=== PATIENT | female | born 1995 | race Caucasian/White ===

== ENCOUNTER 2017-07-10 20:56 | Emergency (ER) | payer BC ==
[2017-07-11] MEDS: ONDANSETRON (ODT) 4 MG TAB ODT (00:17)
[2017-07-11] MEDS: KETOROLAC 60 MG INJ IM (00:18)
== END 2017-07-11 01:24 | disposition home or self-care (01) ==
LOC: FTE 07-11 01:24
DX: R51 Headache (principal); R11.0 Nausea
CPT/HCPCS: 81025; 96372; 99284-25

== ENCOUNTER 2017-08-06 07:36 | Day surgery (SDC) | payer BC ==
[~2017-08-06 07:36] MED LIST: CEFAZOLIN 1 GM INJ; DEXAMETHASONE 4 MG/ML 1 ML INJ; LIDOCAINE 1%/EPI 30 ML INJ; METOCLOPRAMIDE 10 MG INJ; OXYMETAZOLINE 0.05% 15 ML NAS SPRAY NASAL; SUGAMMADEX SODIUM 200 MG/2 ML VIAL IV
[2017-08-06] MEDS: OXYMETAZOLINE 0.05% 15 ML NAS SPRAY NASAL (07:44)
[2017-08-06] MEDS: LIDOCAINE 1%/EPI 30 ML INJ INJ (07:44)
[2017-08-06] MEDS ORDERED: FENTAnyl 50 MCG/ML VIAL (07:49)
[2017-08-06] MEDS ORDERED: MIDAZOLAM 1 MG/ML 2 ML INJ (07:49)
[2017-08-06] MEDS ORDERED: PROPOFOL 20 ML (07:50)
[2017-08-06] MEDS ORDERED: ROCURONIUM 50 MG INJ (07:52)
[2017-08-06] MEDS ORDERED: LIDOCAINE 100 MG SYRINGE (07:52)
[2017-08-06] MEDS ORDERED: ONDANSETRON 4 MG INJ (07:52)
[2017-08-06] MEDS ORDERED: SUCCINYLCHOLINE CHLORIDE 100 MG/5 ML SYG IV (07:52)
[2017-08-06] MEDS ORDERED: HYDROmorphONE (0.2 MG/ML) 10ML SYG IV (10:00)
[2017-08-06] MEDS ORDERED: DIPHENHYDRAMINE 50 MG INJ IV (10:00)
[2017-08-06] MEDS ORDERED: ONDANSETRON 4 MG INJ IV (10:00)
[2017-08-06] MEDS ORDERED: MEPERIDINE 25 MG INJ IV (10:00)
[2017-08-06] MEDS ORDERED: FENTAnyl 50 MCG/ML VIAL IV ×2 (10:00)
[2017-08-06] MEDS: LEVALBUTEROL (NEB) 0.63 MG/3 ML AMP HHN (10:57)
[2017-08-06] MEDS: HYDROmorphONE (0.2 MG/ML) 10ML SYG IV (11:19)
== END 2017-08-06 13:22 | disposition home or self-care (01) ==
LOC: SDS 07:36
DX: J32.8 Other chronic sinusitis (principal)
CPT/HCPCS: 31253; 84703; 94664

== ENCOUNTER 2018-06-21 16:30 | Emergency (ER) | payer BC ==
[2018-06-21] MEDS: DIAZEPAM 5 MG TAB PO (19:22)
[2018-06-21] MEDS: KETOROLAC 15 MG INJ IM (19:23)
== END 2018-06-21 19:27 | disposition home or self-care (01) ==
LOC: FTE 16:30
DX: S16.1XXA Strain of muscle, fascia and tendon at neck level, initial encounter (principal); X58.XXXA Exposure to other specified factors, initial encounter; Y92.9 Unspecified place or not applicable
CPT/HCPCS: 81025; 96372; 99284-25